=== PATIENT | female | born 1945 | race Two or more races ===

== ENCOUNTER 2023-09-13 09:14 | Inpatient (IN) | payer OTHER ==
[~2023-09-13] VITALS: Ht 152.4 cm; Wt 77.1 kg
[2023-09-13] MEDS ORDERED: 0.9 % SODIUM CHLORIDE 1,000 ML IV STA (10:13)
[2023-09-13 11:07] LABS: HEMATOCRIT 32.8 % (36.0-45.00); HEMOGLOBIN 10.8 g/dL (12.0-15.00); MEAN CELL VOLUME 83.3 fL (80.00-100.00); MEAN CORPUSCULAR HEMOGLOBIN 27.5 pg (27.00-32.0); PLATELET COUNT 271 K/uL (150-450); RED BLOOD COUNT 3.94 M/uL (4.00-6.00); RED CELL DISTRIBUTION WIDTH 23.3 % (11.5-14.5)
[2023-09-13 11:29] LABS: ALBUMIN 3.7 gm/dL (3.4-5.0); ALKALINE PHOSPHATASE 89 U/L (50-136); ALT/SGPT 29 U/L (12-78); ANION GAP 8 (10.0-20.0); AST/SGOT 21 U/L (15-37); BILIRUBIN TOTAL 0.42 mg/dL (0.3-1.2); BILIRUBIN,CONJUGATED < 0.10 mg/dL (0.0-0.2); BILIRUBIN,UNCONJUGATED 0.32 mg/dL (0.0-0.6); BLOOD UREA NITROGEN 12 mg/dL (7-18); BUN CREA RATIO 32 (7.0-25.0); CALCIUM 9.3 mg/dL (8.5-10.1); CARBON DIOXIDE 28 mEq/L (21-32); CHLORIDE 108 mmol/L (98-107); CREATININE SERUM 0.38 mg/dL (0.55-1.02); GFR 165.09; GLUCOSE FASTING 95 mg/dL (65-100); OSMOLALITY SERUM 281 MOSM/KG (275-295); POTASSIUM 3.37 mEq/L (3.5-5.1); SODIUM 141 mmol/L (136-145); TOTAL PROTEIN 7.2 gm/dL (6.4-8.2)
[2023-09-13 11:35] LABS: INR 0.96; PARTIAL THROMBOPLASTIN TIME 26.5 SECONDS (22.0-34.0); PROTHROMBIN TIME 10.1 SECONDS (9.0-11.5)
[2023-09-13 12:00] LABS: PH,URINE 7.5 (5.0-8.0); URINE APPEARANCE Clear; URINE BILIRRUBIN Negative (NEGATIVE); URINE BLOOD Negative; URINE COLOR Yellow; URINE GLUCOSE Negative (NEGATIVE); URINE LEUKOCYTE Trace; URINE NITRATE Negative; URINE PROTEIN Negative (NEGATIVE); URINE UROBILINOGEN 0.2 E.U./dl
[2023-09-13 12:02] LABS: URINE BACTERIA 21.4 uL (0.0-1933); URINE WBC 4.1 uL (0.0-23.2)
[2023-09-13 12:04] LABS: URINE RBC 1.7 uL (0.0-20.8)
[2023-09-13] MEDS ORDERED: SOD FERRIC GLUC COMPLX/SUCROSE 62.5 MG in 0.9 % SODIUM CHLORIDE 50 ML IV SCH (14:07)
[2023-09-13] MEDS ORDERED: POTASSIUM CHLORIDE 20MEQ/100ML H2O PB IV ONE (14:15)
[2023-09-13] MEDS ORDERED: 0.9 % SODIUM CHLORIDE 1,000 ML IV SCH (19:45)
[2023-09-13] MEDS ORDERED: MEPERIDINE HCL/PF 25 MG/ML VIAL IM PRN (19:45)
[2023-09-13] MEDS ORDERED: ACETAMINOPHEN 500 MG GEL..CAP PO PRN (19:45)
[2023-09-13] MEDS ORDERED: ONDANSETRON HCL 4 MG in 0.9 % SODIUM CHLORIDE 50 ML IV PRN (19:45)
[2023-09-13] MEDS ORDERED: FAMOTIDINE/PF 20 MG/10 ML SYRINGE IV SCH (21:00)
[2023-09-14 06:09] LABS: HEMATOCRIT 33.3 % (36.0-45.00); HEMOGLOBIN 10.9 g/dL (12.0-15.00); MEAN CELL VOLUME 85.5 fL (80.00-100.00); MEAN CORPUSCULAR HEMOGLOBIN 27.9 pg (27.00-32.0); MEAN CORPUSCULAR HGB CONC 32.7 g/dl (32.0-36.0); PLATELET COUNT 271 K/uL (150-450); RED CELL DISTRIBUTION WIDTH 23.8 % (11.5-14.5)
[2023-09-14 06:45] LABS: COL EPI 98 SECONDS (82-175)
[2023-09-14 06:46] LABS: CALCIUM 8.8 mg/dL (8.5-10.1); CREATININE SERUM 0.39 mg/dL (0.55-1.02); GFR 160.21; PHOSPHOROUS 4.1 mg/dL (2.5-4.9); POTASSIUM 4.03 mEq/L (3.5-5.1)
[2023-09-14] MEDS ORDERED: POLYETHYLENE GLYCOL 3350 238 GM POWDER PO ONE (10:30)
[2023-09-15] MEDS ORDERED: VANCOMYCIN HCL 1,000 MG VIAL IV STA (08:56)
[2023-09-15] MEDS ORDERED: LIDOCAINE HCL 1%/Epi 20ML VIAL IJ ONE ×2 (12:25→13:45)
[2023-09-15] MEDS ORDERED: BUPIVACAINE HCL/PF 0.5% 30ML ML ONE (12:25)
[2023-09-15] MEDS ORDERED: CEFTRIAXONE SODIUM 2,000 MG VIAL ONE (13:36)
[2023-09-15] MEDS ORDERED: METRONIDAZOLE/SODIUM CHLORIDE 500 MG/100 ML PIGGYBACK IV ONE (13:36)
[2023-09-15] MEDS ORDERED: BUPIVACAINE HCL/PF 0.5% 30ML ML IJ ONE (13:45)
[2023-09-15] MEDS ORDERED: CEFTRIAXONE SODIUM 2,000 MG in 0.9 % SODIUM CHLORIDE 50 ML IV ONE (13:45)
[2023-09-15] MEDS ORDERED: METRONIDAZOLE/SODIUM CHLORIDE 200 ML IV ONE (13:45)
[2023-09-15] MEDS ORDERED: ONDANSETRON HCL 2 MG/ML VIAL IV PRN (15:45)
[2023-09-15] MEDS ORDERED: OxyCODONE HCL 5 MG TABLET (ROXICODONE) PO PRN (15:45)
[2023-09-15] MEDS ORDERED: DEXTROSE 50 % IN WATER 0.5 G/ML DISP.SYRIN IV PRN (15:45)
[2023-09-15] MEDS ORDERED: RINGERS SOLUTION,LACTATED 1,000 ML IV SCH (15:45)
[2023-09-15] MEDS ORDERED: MORPHINE SULFATE 4 MG/ML CARTRIDGE IV PRN (15:45)
[2023-09-15] MEDS ORDERED: SUGAMMADEX SODIUM 200 MG/2 ML VIAL IV ONE (15:53)
[2023-09-15] MEDS ORDERED: POLYETHYLENE GLYCOL 3350 17 GM BLIST.PACK PO SCH (17:00)
[2023-09-15] MEDS ORDERED: GABAPENTIN 300 MG CAPSULE PO SCH (17:00)
[2023-09-15] MEDS ORDERED: HYOSCYAMINE SULFATE 0.125 MG TAB.SUBL SL SCH (17:00)
[2023-09-15] MEDS ORDERED: PIPERACILLIN/TAZOBACTAM SODIUM 3.375 GM in DEXTROSE 5 % IN WATER 100 ML IV SCH (18:00)
[2023-09-15] MEDS ORDERED: PIPERACILLIN/TAZOBACTAM SODIUM 3.375 GM VIAL IV ONE (18:10)
[2023-09-15] MEDS ORDERED: ACETAMINOPHEN 500 MG GEL..CAP PO SCH (20:00)
[2023-09-15 20:31] LABS: HEMATOCRIT 32.9 % (36.0-45.00); HEMOGLOBIN 10.7 g/dL (12.0-15.00); MEAN CELL VOLUME 86.2 fL (80.00-100.00); MEAN CORPUSCULAR HEMOGLOBIN 28.1 pg (27.00-32.0); MEAN CORPUSCULAR HGB CONC 32.5 g/dl (32.0-36.0); PLATELET COUNT 273 K/uL (150-450); RED BLOOD COUNT 3.82 M/uL (4.00-6.00)
[2023-09-15 20:50] LABS: ALBUMIN 3.4 gm/dL (3.4-5.0); CREATININE SERUM 0.31 mg/dL (0.55-1.02); GFR 208.26; MAGNESIUM 1.6 mg/dL (1.8-2.4); PHOSPHOROUS 3.6 mg/dL (2.5-4.9); POTASSIUM 3.19 mEq/L (3.5-5.1)
[2023-09-15] MEDS ORDERED: CELECOXIB 200 MG CAPSULE PO SCH (21:00)
[2023-09-15] MEDS ORDERED: FAMOTIDINE/PF 20 MG/2 ML VIAL IV SCH (21:00)
[2023-09-15] MEDS ORDERED: FAMOTIDINE/PF 20 MG/2 ML VIAL IV PUSH SCH (21:00)
[2023-09-16 08:02] LABS: CREATININE SERUM 0.4 mg/dL (0.55-1.02); GFR 155.19; MAGNESIUM 1.8 mg/dL (1.8-2.4); PHOSPHOROUS 3.5 mg/dL (2.5-4.9); POTASSIUM 3.24 mEq/L (3.5-5.1)
[2023-09-16 08:22] LABS: HEMATOCRIT 30.6 % (36.0-45.00); HEMOGLOBIN 10.2 g/dL (12.0-15.00); MEAN CELL VOLUME 86.3 fL (80.00-100.00); MEAN CORPUSCULAR HEMOGLOBIN 28.6 pg (27.00-32.0); MEAN CORPUSCULAR HGB CONC 33.2 g/dl (32.0-36.0); PLATELET COUNT 231 K/uL (150-450); RED BLOOD COUNT 3.55 M/uL (4.00-6.00); RED CELL DISTRIBUTION WIDTH 24.4 % (11.5-14.5)
[2023-09-16] MEDS ORDERED: POTASSIUM CHLORIDE IN WATER 100 ML IV ONE (11:00)
[2023-09-16] MEDS ORDERED: TAMSULOSIN HCL 0.4 MG CAP PO ONE (12:15)
[2023-09-16] MEDS ORDERED: VANCOMYCIN HCL 1,000 MG VIAL IV SCH (13:01)
[2023-09-16 15:59] LABS: CREATININE SERUM 0.66 mg/dL (0.55-1.02); GFR 87.07
[2023-09-16 16:54] LABS: POTASSIUM 2.71 mEq/L (3.5-5.1)
[2023-09-16] MEDS ORDERED: ENOXAPARIN SODIUM 40 MG/0.4 ML SYRINGE SUBCUTANEO SCH (17:00)
[2023-09-17 07:38] LABS: CALCIUM 8.1 mg/dL (8.5-10.1); CREATININE SERUM 0.49 mg/dL (0.55-1.02); GFR 122.79; POTASSIUM 3.54 mEq/L (3.5-5.1)
[2023-09-17 08:08] LABS: MAGNESIUM 1.4 mg/dL (1.8-2.4)
[2023-09-17 08:41] LABS: HEMATOCRIT 31.3 % (36.0-45.00); HEMOGLOBIN 10.4 g/dL (12.0-15.00); MEAN CELL VOLUME 86.3 fL (80.00-100.00); MEAN CORPUSCULAR HEMOGLOBIN 28.7 pg (27.00-32.0); MEAN CORPUSCULAR HGB CONC 33.3 g/dl (32.0-36.0); PLATELET COUNT 208 K/uL (150-450); RED BLOOD COUNT 3.63 M/uL (4.00-6.00); RED CELL DISTRIBUTION WIDTH 24.2 % (11.5-14.5)
[2023-09-17] MEDS ORDERED: ENOXAPARIN SODIUM 40 MG/0.4 ML SYRINGE SUBCUTANEO SCH (09:00)
[2023-09-17] MEDS ORDERED: MAGNESIUM SULFATE IN WATER 4 GM/100 ML PIGGYBACK IV ONE (12:30)
[2023-09-17] MEDS ORDERED: POTASSIUM PHOS,M-BASIC-D-BASIC 15 MM in 0.9 % SODIUM CHLORIDE 250 ML IV ONE (14:00)
[2023-09-18 06:21] LABS: HEMATOCRIT 33.2 % (36.0-45.00); HEMOGLOBIN 11.1 g/dL (12.0-15.00); MEAN CELL VOLUME 84.8 fL (80.00-100.00); MEAN CORPUSCULAR HEMOGLOBIN 28.3 pg (27.00-32.0); MEAN CORPUSCULAR HGB CONC 33.4 g/dl (32.0-36.0); PLATELET COUNT 224 K/uL (150-450); RED BLOOD COUNT 3.92 M/uL (4.00-6.00); RED CELL DISTRIBUTION WIDTH 24.4 % (11.5-14.5)
[2023-09-18 06:39] LABS: CALCIUM 8.2 mg/dL (8.5-10.1); CREATININE SERUM 0.59 mg/dL (0.55-1.02); GFR 99.1; MAGNESIUM 2.4 mg/dL (1.8-2.4); PHOSPHOROUS 2.1 mg/dL (2.5-4.9); POTASSIUM 4.02 mEq/L (3.5-5.1)
[2023-09-18] MEDS ORDERED: 0.9 % SODIUM CHLORIDE 500 ML IV SCH (07:45)
[2023-09-18] MEDS ORDERED: 0.9 % SODIUM CHLORIDE 1,000 ML IV SCH (10:00)
[2023-09-18 16:19] LABS: HEMOGLOBIN 10.7 g/dL (12.0-15.00); MEAN CELL VOLUME 85.5 fL (80.00-100.00); MEAN CORPUSCULAR HEMOGLOBIN 28.6 pg (27.00-32.0); MEAN CORPUSCULAR HGB CONC 33.4 g/dl (32.0-36.0); PLATELET COUNT 262 K/uL (150-450); RED BLOOD COUNT 3.74 M/uL (4.00-6.00); RED CELL DISTRIBUTION WIDTH 23.9 % (11.5-14.5)
[2023-09-19] MEDS ORDERED: FUROsemide 20 MG/2 ML VIAL IV STA (05:17)
[2023-09-19] MEDS ORDERED: IPRATROPIUM/ALBUTEROL SULFATE 3 ML AMPUL.NEB IH STA (05:17)
[2023-09-19] MEDS ORDERED: IPRATROPIUM BROMIDE 0.5 MG/2.5 ML AMPUL.NEB IH ONE (05:44)
[2023-09-19 05:59] LABS: ALBUMIN 2.2 gm/dL (3.4-5.0); CALCIUM 7.9 mg/dL (8.5-10.1); CREATININE SERUM 0.43 mg/dL (0.55-1.02); GFR 142.76; POTASSIUM 3.92 mEq/L (3.5-5.1)
[2023-09-19 06:34] LABS: PHOSPHOROUS 1.9 mg/dL (2.5-4.9)
[2023-09-19] MEDS ORDERED: POTASSIUM PHOS,M-BASIC-D-BASIC 3 MM/ML VIAL IV ONE (13:00)
[2023-09-19] MEDS ORDERED: FUROsemide 20 MG/2 ML VIAL IV SCH (13:00)
[2023-09-19 13:19] LABS: ABG PH 7.372 (7.35-7.45); ABG pCO2 33.2 mmHg (35-45); BASE EXCESS -5.3 mmol/l; BICARBONATE 18.9 mmol/l (23-25); SaO2 96.8 %; Tco2 19.9 mmol/l; allen test SATISFACTORY; o2 21 %; puncture site RADIAL RIGHT
[2023-09-19] MEDS ORDERED: ENOXAPARIN SODIUM 80 MG/0.8 ML SYRINGE SUBCUTANEO STA (13:41)
[2023-09-19] MEDS ORDERED: ENOXAPARIN SODIUM 80 MG/0.8 ML SYRINGE SUBCUTANEO SCH (21:00)
[2023-09-20 06:58] LABS: BILIRUBIN TOTAL 1.14 mg/dL (0.3-1.2); CALCIUM 7.8 mg/dL (8.5-10.1); GLOBULINA 2.8 G/DL (2.4-3.5); POTASSIUM 3.78 mEq/L (3.5-5.1); TOTAL PROTEIN 4.8 gm/dL (6.4-8.2); URIC ACID 3.9 mg/dL (2.5-7.5)
[2023-09-20 07:02] LABS: HEMOGLOBIN 9.8 g/dL (12.0-15.00); MEAN CELL VOLUME 84.4 fL (80.00-100.00); MEAN CORPUSCULAR HEMOGLOBIN 28.4 pg (27.00-32.0); MEAN CORPUSCULAR HGB CONC 33.7 g/dl (32.0-36.0); PLATELET COUNT 267 K/uL (150-450); RED BLOOD COUNT 3.44 M/uL (4.00-6.00); RED CELL DISTRIBUTION WIDTH 24.3 % (11.5-14.5)
[2023-09-20 07:29] LABS: CREATININE SERUM 0.29 mg/dL (0.55-1.02); GFR 224.92
[2023-09-20] MEDS ORDERED: ENOXAPARIN SODIUM 40 MG/0.4 ML SYRINGE SUBCUTANEO SCH ×2 (09:00→17:00)
[2023-09-20] MEDS ORDERED: SOD FERRIC GLUC COMPLX/SUCROSE 62.5 MG in 0.9 % SODIUM CHLORIDE 50 ML IV SCH (10:22)
[2023-09-20] MEDS ORDERED: Cyanocobalamin/Mecobalamin 1 TAB.SL SL SCH (10:22)
[2023-09-20 12:50] LABS: URINE APPEARANCE Cloudy; URINE BILIRRUBIN Negative (NEGATIVE); URINE BLOOD Trace; URINE COLOR Yellow; URINE GLUCOSE Negative (NEGATIVE); URINE LEUKOCYTE Negative; URINE NITRATE Negative; URINE PROTEIN Trace (NEGATIVE); URINE UROBILINOGEN 0.2 E.U./dl
[2023-09-20 12:54] LABS: URINE EPITHELIAL CELLS 11.2 uL (0.0-38.8); URINE RBC 4.5 uL (0.0-20.8); URINE WBC 5.8 uL (0.0-23.2)
[2023-09-20] MEDS ORDERED: FUROsemide 20 MG/2 ML VIAL IV SCH (13:00)
[2023-09-21 06:58] LABS: HEMOGLOBIN 9.2 g/dL (12.0-15.00); MEAN CELL VOLUME 82.5 fL (80.00-100.00); PLATELET COUNT 320 K/uL (150-450); RED BLOOD COUNT 3.27 M/uL (4.00-6.00); RED CELL DISTRIBUTION WIDTH 24.3 % (11.5-14.5)
[2023-09-21 07:18] LABS: CALCIUM 7.7 mg/dL (8.5-10.1); MAGNESIUM 1.8 mg/dL (1.8-2.4); TSH 0.69 uIU/mL (0.358-3.74)
[2023-09-21 07:26] LABS: GFR 326.43; POTASSIUM 2.96 mEq/L (3.5-5.1)
[2023-09-21 07:27] LABS: ALBUMIN 2.1 gm/dL (3.4-5.0); BILIRUBIN TOTAL 1.09 mg/dL (0.3-1.2); GLOBULINA 2.8 G/DL (2.4-3.5); PHOSPHOROUS 1.8 mg/dL (2.5-4.9); TOTAL PROTEIN 4.9 gm/dL (6.4-8.2)
[2023-09-21 07:28] LABS: CREATININE SERUM 0.21 mg/dL (0.55-1.02)
[2023-09-21] MEDS ORDERED: POTASSIUM PHOS,M-BASIC-D-BASIC 3 MM/ML VIAL IV ONE (07:30)
[2023-09-21] MEDS ORDERED: POTASSIUM CHLORIDE 20MEQ/100ML H2O PB IV ONE (07:30)
[2023-09-21] MEDS ORDERED: METOCLOPRAMIDE HCL 5 MG/ML VIAL IV SCH (09:00)
[2023-09-21] MEDS ORDERED: MAGNESIUM SULFATE IN WATER 50 ML IV ONE (09:45)
[2023-09-22 06:51] LABS: ALBUMIN 2.2 gm/dL (3.4-5.0); BILIRUBIN TOTAL 0.91 mg/dL (0.3-1.2); CALCIUM 7.6 mg/dL (8.5-10.1); GLOBULINA 2.8 G/DL (2.4-3.5); MAGNESIUM 2.4 mg/dL (1.8-2.4)
[2023-09-22 06:53] LABS: GFR 266.94
[2023-09-22 06:54] LABS: POTASSIUM 2.96 mEq/L (3.5-5.1)
[2023-09-22 06:55] LABS: PHOSPHOROUS 1.7 mg/dL (2.5-4.9)
[2023-09-22 06:56] LABS: CREATININE SERUM 0.25 mg/dL (0.55-1.02)
[2023-09-22] MEDS ORDERED: POTASSIUM CHLORIDE 20MEQ/100ML H2O PB IV ONE (07:45)
[2023-09-22] MEDS ORDERED: POTASSIUM PHOS,M-BASIC-D-BASIC 3 MM/ML VIAL IV ONE (08:30)
[2023-09-22] MEDS ORDERED: LEVALBUTEROL HCL 0.63 MG/3 ML SOLUTION IH SCH (09:26)
[2023-09-22] MEDS ORDERED: SIMETHICONE 125 MG CAPSULE PO SCH (13:30)
[2023-09-22 13:47] LABS: HEMATOCRIT 31.2 % (36.0-45.00); HEMOGLOBIN 10.3 g/dL (12.0-15.00); MEAN CELL VOLUME 83.6 fL (80.00-100.00); MEAN CORPUSCULAR HEMOGLOBIN 27.6 pg (27.00-32.0); PLATELET COUNT 386 K/uL (150-450); RED BLOOD COUNT 3.72 M/uL (4.00-6.00); RED CELL DISTRIBUTION WIDTH 24.4 % (11.5-14.5)
[2023-09-22] MEDS ORDERED: PIPERACILLIN/TAZOBACTAM SODIUM 3.375 GM in 0.9 % SODIUM CHLORIDE 100 ML IV SCH (18:00)
[2023-09-23 08:04] LABS: HEMATOCRIT 29.5 % (36.0-45.00); MEAN CELL VOLUME 84.2 fL (80.00-100.00); MEAN CORPUSCULAR HGB CONC 33.1 g/dl (32.0-36.0); PLATELET COUNT 363 K/uL (150-450); RED BLOOD COUNT 3.51 M/uL (4.00-6.00); RED CELL DISTRIBUTION WIDTH 24.7 % (11.5-14.5)
[2023-09-23 08:29] LABS: CALCIUM 7.7 mg/dL (8.5-10.1); GFR 255.13; MAGNESIUM 2.1 mg/dL (1.8-2.4); PHOSPHOROUS 2.6 mg/dL (2.5-4.9); POTASSIUM 3.25 mEq/L (3.5-5.1)
[2023-09-23 08:38] LABS: CREATININE SERUM 0.26 mg/dL (0.55-1.02)
[2023-09-23 08:49] LABS: HEMOGLOBIN 9.8 g/dL (12.0-15.00); MEAN CORPUSCULAR HEMOGLOBIN 27.9 pg (27.00-32.0)
[2023-09-23] MEDS ORDERED: AMINO ACIDS 1 EACH TABLET PO SCH (11:47)
[2023-09-23] MEDS ORDERED: DIATRIZOATE MEGLUMINE, SODIUM 30 ML BOTTLE PO ONE (12:00)
[2023-09-23] MEDS ORDERED: POTASSIUM CHLORIDE IN WATER 100 ML IV ONE (12:00)
[2023-09-23] MEDS ORDERED: FLUCONAZOLE IN NACL,ISO-OSM 400 MG/200 ML PIGGYBAG IV ONE (13:30)
[2023-09-23] MEDS ORDERED: SPIRONOLACTONE 25 MG TABLET PO SCH (15:14)
[2023-09-23 15:56] LABS: URINE APPEARANCE Cloudy; URINE BILIRRUBIN Negative (NEGATIVE); URINE BLOOD Negative; URINE COLOR Dark Yellow; URINE GLUCOSE Negative (NEGATIVE); URINE LEUKOCYTE Trace; URINE NITRATE Negative; URINE PROTEIN 30 (NEGATIVE); URINE UROBILINOGEN 0.2 E.U./dl
[2023-09-23 16:01] LABS: URINE BACTERIA 36.5 uL (0.0-1933); URINE EPITHELIAL CELLS 93.8 uL (0.0-38.8); URINE RBC 28.7 uL (0.0-20.8)
[2023-09-23] MEDS ORDERED: VANCOMYCIN HCL 1,000 MG VIAL IV SCH (21:00)
[2023-09-24 11:38] LABS: ALBUMIN 1.9 gm/dL (3.4-5.0); BILIRUBIN TOTAL 0.66 mg/dL (0.3-1.2); CALCIUM 7.6 mg/dL (8.5-10.1); GLOBULINA 2.9 G/DL (2.4-3.5); TOTAL PROTEIN 4.8 gm/dL (6.4-8.2)
[2023-09-24 11:45] LABS: GFR 293.91
[2023-09-24 11:47] LABS: HEMATOCRIT 27.4 % (36.0-45.00); MEAN CELL VOLUME 83.2 fL (80.00-100.00); MEAN CORPUSCULAR HEMOGLOBIN 27.4 pg (27.00-32.0); PLATELET COUNT 417 K/uL (150-450); RED BLOOD COUNT 3.29 M/uL (4.00-6.00); RED CELL DISTRIBUTION WIDTH 25.4 % (11.5-14.5)
[2023-09-24] MEDS ORDERED: FLUCONAZOLE IN NACL,ISO-OSM 100 ML IV SCH (12:00)
[2023-09-24] MEDS ORDERED: POTASSIUM CHLORIDE IN WATER 100 ML IV ONE (12:00)
[2023-09-24] MEDS ORDERED: FUROsemide 20 MG/2 ML VIAL IV SCH (12:07)
[2023-09-24 12:08] LABS: CREATININE SERUM 0.23 mg/dL (0.55-1.02)
[2023-09-24] MEDS ORDERED: SPIRONOLACTONE 50 MG TABLET PO SCH (12:16)
[2023-09-24 12:44] LABS: PROCALCITONIN 0.502 ng/ml (0.020-0.080)
[2023-09-24 12:50] LABS: CORTISOL 28.75 ug/dl
[2023-09-24] MEDS ORDERED: POTASSIUM BICARBONATE/CIT AC 25 MEQ TABLET.EFF PO SCH (13:00)
[2023-09-24] MEDS ORDERED: MEPERIDINE HCL/PF 25 MG/ML VIAL IV PRN (15:00)
[2023-09-24] MEDS ORDERED: ONDANSETRON HCL 4 MG in 0.9 % SODIUM CHLORIDE 50 ML IV PRN (15:00)
[2023-09-25 12:32] LABS: CALCIUM 7.6 mg/dL (8.5-10.1); CREATININE SERUM 0.35 mg/dL (0.55-1.02); GFR 181.04; PHOSPHOROUS 2.8 mg/dL (2.5-4.9)
[2023-09-25] MEDS ORDERED: LIDOCAINE HCL 100 MG/10ML VIAL ONE (13:49)
[2023-09-25 14:02] LABS: HEMATOCRIT 28.4 % (36.0-45.00); HEMOGLOBIN 9.3 g/dL (12.0-15.00); MEAN CELL VOLUME 83.5 fL (80.00-100.00); MEAN CORPUSCULAR HEMOGLOBIN 27.5 pg (27.00-32.0); MEAN CORPUSCULAR HGB CONC 32.9 g/dl (32.0-36.0); PLATELET COUNT 445 K/uL (150-450); RED BLOOD COUNT 3.39 M/uL (4.00-6.00)
[2023-09-25] MEDS ORDERED: 0.9 % SODIUM CHLORIDE 1,000 ML IV SCH (14:30)
[2023-09-25] MEDS ORDERED: fentaNYL CITRATE 50 MCG/ML AMPUL IV PUSH ONE (16:15)
[2023-09-25] MEDS ORDERED: MIDAZOLAM HCL 2 MG/2 ML VIAL IV PUSH ONE (16:15)
[2023-09-25] MEDS ORDERED: AA 4.25%/CALCIUM/LYTES/DEX 10% 1,000 ML CENTRAL SCH (17:00)
[2023-09-25] MEDS ORDERED: VANCOMYCIN HCL 5 MG/ML REDILUIDO IV SCH (21:00)
[2023-09-25] MEDS ORDERED: VANCOMYCIN HCL 500 MG VIAL ONE (21:47)
[2023-09-26 05:25] LABS: HEMATOCRIT 26.2 % (36.0-45.00); HEMOGLOBIN 8.6 g/dL (12.0-15.00); MEAN CORPUSCULAR HEMOGLOBIN 27.9 pg (27.00-32.0); PLATELET COUNT 402 K/uL (150-450); RED BLOOD COUNT 3.08 M/uL (4.00-6.00); RED CELL DISTRIBUTION WIDTH 26.3 % (11.5-14.5)
[2023-09-26 05:41] LABS: ALBUMIN 1.5 gm/dL (3.4-5.0); BILIRUBIN TOTAL 0.38 mg/dL (0.3-1.2); CALCIUM 7.2 mg/dL (8.5-10.1); GFR 234.22; GLOBULINA 2.7 G/DL (2.4-3.5); POTASSIUM 4.56 mEq/L (3.5-5.1); TOTAL PROTEIN 4.2 gm/dL (6.4-8.2)
[2023-09-26 05:46] LABS: CALCIUM 7.1 mg/dL (8.5-10.1); CREATININE SERUM 0.3 mg/dL (0.55-1.02); GFR 216.29; PHOSPHOROUS 2.4 mg/dL (2.5-4.9); POTASSIUM 4.57 mEq/L (3.5-5.1)
[2023-09-26 05:49] LABS: CREATININE SERUM 0.28 mg/dL (0.55-1.02)
[2023-09-26] MEDS ORDERED: FUROsemide 20 MG/2 ML VIAL IV SCH (07:30)
[2023-09-26] MEDS ORDERED: SOD FERRIC GLUC COMPLX/SUCROSE 62.5 MG/5 ML AMPUL IV ONE ×2 (07:43→08:32)
[2023-09-26] MEDS ORDERED: PIPERACILLIN/TAZOBACTAM SODIUM 3.375 GM VIAL IV ONE ×3 (07:43→18:45)
[2023-09-26] MEDS ORDERED: PIPERACILLIN/TAZOBACTAM SODIUM 4.5 GM VIAL IV SCH (12:38)
[2023-09-26] MEDS ORDERED: CHLORHEXIDINE GLUCONATE 120 ML BOTTLE TOP ONE (17:58)
[2023-09-26] MEDS ORDERED: MEPERIDINE HCL/PF 25 MG/ML VIAL IV PRN (20:00)
[2023-09-26] MEDS ORDERED: MORPHINE SULFATE 4 MG in 0.9 % SODIUM CHLORIDE 9 ML IV PRN (20:00)
[2023-09-26] MEDS ORDERED: ONDANSETRON HCL 2 MG/ML VIAL IV ONE (20:00)
[2023-09-26] MEDS ORDERED: MORPHINE SULFATE 4 MG/ML CARTRIDGE IV PRN (20:30)
[2023-09-26] MEDS ORDERED: DEXTROSE 50 % IN WATER 0.5 G/ML DISP.SYRIN IV PRN (20:30)
[2023-09-26] MEDS ORDERED: RINGERS SOLUTION,LACTATED 1,000 ML IV SCH (20:30)
[2023-09-26] MEDS ORDERED: INSULIN LISPRO PROTAMIN/LISPRO 1,000 UNITS/10 ML UNITS SUBCUTANEO PRN (20:30)
[2023-09-26] MEDS ORDERED: HEPARIN SODIUM,PORCINE 500 UNITS/5 ML VIAL IV ONE (20:34)
[2023-09-26] MEDS ORDERED: NOREPINEPHRINE BITARTRATE 1 MG/ML AMPUL IV ONE (22:13)
[2023-09-26] MEDS ORDERED: HEPARIN SODIUM,PORCINE 1,000 UNITS/ML VIAL IV ONE (22:15)
[2023-09-27] MEDS ORDERED: PIPERACILLIN/TAZOBACTAM SODIUM 3.375 GM in DEXTROSE 5 % IN WATER 100 ML IV SCH
[2023-09-27 00:54] LABS: ABG PH 7.446 (7.35-7.45)
[2023-09-27 00:55] LABS: ABG PO2 518.4 mmHg (80-100); BASE EXCESS -3.1 mmol/l; BICARBONATE 19.5 mmol/l (23-25); Tco2 20.4 mmol/l; allen test SATISFACTORY; o2 100 %; puncture site RADIAL RIGHT
[2023-09-27 01:05] LABS: HEMATOCRIT 33.6 % (36.0-45.00); MEAN CELL VOLUME 86.1 fL (80.00-100.00); MEAN CORPUSCULAR HGB CONC 32.7 g/dl (32.0-36.0); PLATELET COUNT 420 K/uL (150-450); RED BLOOD COUNT 3.91 M/uL (4.00-6.00); RED CELL DISTRIBUTION WIDTH 23.9 % (11.5-14.5)
[2023-09-27 01:12] LABS: MEAN CORPUSCULAR HEMOGLOBIN 28.1 pg (27.00-32.0)
[2023-09-27 01:17] LABS: ALBUMIN 1.3 gm/dL (3.4-5.0); CALCIUM 7.2 mg/dL (8.5-10.1); CREATININE SERUM 0.53 mg/dL (0.55-1.02); GFR 112.16; MAGNESIUM 2.2 mg/dL (1.8-2.4); PHOSPHOROUS 3.8 mg/dL (2.5-4.9); POTASSIUM 4.68 mEq/L (3.5-5.1)
[2023-09-27] MEDS ORDERED: PIPERACILLIN/TAZOBACTAM SODIUM 3.375 GM VIAL IV ONE (02:44)
[2023-09-27] MEDS ORDERED: 0.9 % SODIUM CHLORIDE 1,000 ML IV SCH ×3 (08:00→21:00)
[2023-09-27] MEDS ORDERED: MEROPENEM 500 MG/VIAL VIAL IV SCH (08:00)
[2023-09-27] MEDS ORDERED: SODIUM CHLORIDE 0.9% IV SCH (08:15)
[2023-09-27] MEDS ORDERED: FENTANYL CITRATE IV SCH (08:15)
[2023-09-27 08:49] LABS: ABG PH 7.229 (7.35-7.45); ABG PO2 398.4 mmHg (80-100); BASE EXCESS -16.1 mmol/l; BICARBONATE 9.4 mmol/l (23-25); SaO2 99.9 %; Tco2 10.1 mmol/l
[2023-09-27 08:50] LABS: allen test SATISFACTORY; o2 100 %; puncture site RADIAL LEFT
[2023-09-27] MEDS ORDERED: PANTOPRAZOLE SODIUM 40 MG/VIAL VIAL IV SCH (09:00)
[2023-09-27] MEDS ORDERED: SODIUM BICARBONATE 1 MEQ/ML DISP.SYRIN 50ML IV SCH (09:30)
[2023-09-27 11:19] LABS: HEMATOCRIT 26.2 % (36.0-45.00); MEAN CELL VOLUME 89.1 fL (80.00-100.00); MEAN CORPUSCULAR HGB CONC 32.1 g/dl (32.0-36.0); PLATELET COUNT 200 K/uL (150-450); RED BLOOD COUNT 2.95 M/uL (4.00-6.00); RED CELL DISTRIBUTION WIDTH 23.8 % (11.5-14.5)
[2023-09-27 11:50] LABS: CREATININE SERUM 1.05 mg/dL (0.55-1.02); GFR 50.95; MAGNESIUM 1.9 mg/dL (1.8-2.4); PHOSPHOROUS 5.9 mg/dL (2.5-4.9); POTASSIUM 4.97 mEq/L (3.5-5.1)
[2023-09-27 11:54] LABS: CALCIUM 6.3 mg/dL (8.5-10.1)
[2023-09-27 11:56] LABS: MEAN CORPUSCULAR HEMOGLOBIN 28.4 pg (27.00-32.0)
[2023-09-27 11:59] LABS: HEMOGLOBIN 8.4 g/dL (12.0-15.00)
[2023-09-27] MEDS ORDERED: METRONIDAZOLE/SODIUM CHLORIDE 100 ML IV SCH (13:04)
[2023-09-27] MEDS ORDERED: ENOXAPARIN SODIUM 40 MG/0.4 ML SYRINGE SUBCUTANEO SCH (17:00)
[2023-09-27 17:20] LABS: URINE APPEARANCE Turbid; URINE BILIRRUBIN Negative (NEGATIVE); URINE BLOOD Large; URINE COLOR Dark Yellow; URINE LEUKOCYTE Trace; URINE NITRATE Negative; URINE UROBILINOGEN 0.2 E.U./dl
[2023-09-27 17:23] LABS: URINE BACTERIA 229.3 uL (0.0-1933); URINE RBC 928.9 uL (0.0-20.8); URINE WBC 17.7 uL (0.0-23.2)
[2023-09-27 17:37] LABS: URINE GLUCOSE 100 MG/DL (NEGATIVE); URINE PROTEIN 100 (NEGATIVE)
[2023-09-27] MEDS ORDERED: INSULIN LISPRO 1,000 UNIT/10 ML UNITS SUBCUTANEO PRN (17:45)
[2023-09-27] MEDS ORDERED: NOREPINEPHRINE BITARTRATE 8 MG in DEXTROSE 5 % IN WATER 250 ML IV SCH (18:15)
[2023-09-28] MEDS ORDERED: VANCOMYCIN HCL 5 MG/ML REDILUIDO IV SCH (09:00)
[2023-09-28] MEDS ORDERED: POLYVINYL ALCOHOL 15 ML DROPS OP SCH (09:00)
[2023-09-28] MEDS ORDERED: ENOXAPARIN SODIUM 40 MG/0.4 ML SYRINGE SUBCUTANEO SCH (09:00)
[2023-09-28] MEDS ORDERED: CHLORHEXIDINE GLUCONATE 15ML BRUSH KIT MM SCH (09:00)
[2023-09-28 09:26] LABS: ABG PH 7.374 (7.35-7.45); ABG PO2 128.4 mmHg (80-100); ABG pCO2 34.1 mmHg (35-45); BASE EXCESS -4.8 mmol/l; BICARBONATE 19.5 mmol/l (23-25); SaO2 98.7 %; Tco2 20.5 mmol/l
[2023-09-28 09:27] LABS: allen test SATISFACTORY; o2 50 %; puncture site RADIAL LEFT
[2023-09-28 09:33] LABS: HEMATOCRIT 30.9 % (36.0-45.00); HEMOGLOBIN 10.5 g/dL (12.0-15.00); MEAN CELL VOLUME 86.3 fL (80.00-100.00); MEAN CORPUSCULAR HEMOGLOBIN 29.3 pg (27.00-32.0); PLATELET COUNT 227 K/uL (150-450); RED BLOOD COUNT 3.57 M/uL (4.00-6.00); RED CELL DISTRIBUTION WIDTH 20.5 % (11.5-14.5)
[2023-09-28 10:00] LABS: MAGNESIUM 1.7 mg/dL (1.8-2.4); PHOSPHOROUS 4.3 mg/dL (2.5-4.9)
[2023-09-28 10:07] LABS: ALBUMIN 1.1 gm/dL (3.4-5.0); BILIRUBIN TOTAL 0.39 mg/dL (0.3-1.2); CREATININE SERUM 1.51 mg/dL (0.55-1.02); GFR 33.5; GLOBULINA 2.5 G/DL (2.4-3.5); POTASSIUM 4.19 mEq/L (3.5-5.1); TOTAL PROTEIN 3.6 gm/dL (6.4-8.2)
[2023-09-28] MEDS ORDERED: 0.9 % SODIUM CHLORIDE 1,000 ML IV SCH (10:15)
[2023-09-28] MEDS ORDERED: MAGNESIUM SULFATE/D5W 100 ML IV ONE (10:45)
[2023-09-28] MEDS ORDERED: ANIDULAFUNGIN 100 MG VIAL IV ONE (13:00)
[2023-09-28] MEDS ORDERED: MEROPENEM 500 MG/VIAL VIAL IV SCH (17:00)
[2023-09-29 06:58] LABS: HEMATOCRIT 30.7 % (36.0-45.00); HEMOGLOBIN 10.5 g/dL (12.0-15.00); MEAN CELL VOLUME 86.5 fL (80.00-100.00); MEAN CORPUSCULAR HEMOGLOBIN 29.5 pg (27.00-32.0); MEAN CORPUSCULAR HGB CONC 34.1 g/dl (32.0-36.0); PLATELET COUNT 214 K/uL (150-450); RED BLOOD COUNT 3.55 M/uL (4.00-6.00); RED CELL DISTRIBUTION WIDTH 21.1 % (11.5-14.5)
[2023-09-29 07:15] LABS: ALBUMIN 1.2 gm/dL (3.4-5.0); BILIRUBIN TOTAL 0.38 mg/dL (0.3-1.2); BILIRUBIN,CONJUGATED 0.15 mg/dL (0.0-0.2); BILIRUBIN,UNCONJUGATED 0.23 mg/dL (0.0-0.6); CREATININE SERUM 1.61 mg/dL (0.55-1.02); GFR 31.11; MAGNESIUM 2.3 mg/dL (1.8-2.4); POTASSIUM 4.57 mEq/L (3.5-5.1); TOTAL PROTEIN 3.7 gm/dL (6.4-8.2)
[2023-09-29 07:46] LABS: CALCIUM 6.3 mg/dL (8.5-10.1)
[2023-09-29 09:23] LABS: ABG PH 7.403 (7.35-7.45); ABG PO2 112.4 mmHg (80-100); ABG pCO2 33.1 mmHg (35-45); BASE EXCESS -3.6 mmol/l; BICARBONATE 20.1 mmol/l (23-25); SaO2 98.3 %; Tco2 21.2 mmol/l
[2023-09-29 09:24] LABS: allen test SATISFACTORY; o2 40 %; puncture site RADIAL RIGHT
[2023-09-29] MEDS ORDERED: RACEPINEPHRINE HCL 0.5 ML AMPUL IH ONE (09:30)
[2023-09-29] MEDS ORDERED: ALBUTEROL SULFATE 3 ML/2.5 MG AMPUL.NEB IH ONE (09:30)
[2023-09-29] MEDS ORDERED: CALCIUM GLUCONATE 100 MG/ML VIAL IV ONE (09:45)
[2023-09-29] MEDS ORDERED: ANIDULAFUNGIN 100 MG VIAL IV SCH (12:00)
[2023-09-30 07:57] LABS: ALBUMIN 1.1 gm/dL (3.4-5.0); BILIRUBIN TOTAL 0.42 mg/dL (0.3-1.2); CREATININE SERUM 1.48 mg/dL (0.55-1.02); GFR 34.29; GLOBULINA 2.7 G/DL (2.4-3.5); MAGNESIUM 2.1 mg/dL (1.8-2.4); PHOSPHOROUS 3.8 mg/dL (2.5-4.9); POTASSIUM 4.54 mEq/L (3.5-5.1); TOTAL PROTEIN 3.8 gm/dL (6.4-8.2)
[2023-09-30 08:46] LABS: HEMATOCRIT 31.4 % (36.0-45.00); HEMOGLOBIN 10.8 g/dL (12.0-15.00); MEAN CELL VOLUME 85.3 fL (80.00-100.00); MEAN CORPUSCULAR HEMOGLOBIN 29.3 pg (27.00-32.0); MEAN CORPUSCULAR HGB CONC 34.3 g/dl (32.0-36.0); PLATELET COUNT 202 K/uL (150-450); RED BLOOD COUNT 3.68 M/uL (4.00-6.00); RED CELL DISTRIBUTION WIDTH 21.1 % (11.5-14.5)
[2023-09-30] MEDS ORDERED: VANCOMYCIN HCL 5 MG/ML REDILUIDO IV SCH (09:00)
[2023-09-30] MEDS ORDERED: ENOXAPARIN SODIUM 30 MG/0.3 ML SYRINGE SUBCUTANEO SCH (09:00)
[2023-09-30] MEDS ORDERED: MORPHINE SULFATE 4 MG/ML CARTRIDGE IV PRN (11:00)
[2023-09-30] MEDS ORDERED: hydrALAZINE HCL 20 MG VIAL IV PRN ×2 (11:45→13:15)
[2023-10-02 07:02] LABS: HEMATOCRIT 30.9 % (36.0-45.00); HEMOGLOBIN 10.6 g/dL (12.0-15.00); MEAN CELL VOLUME 87.1 fL (80.00-100.00); MEAN CORPUSCULAR HEMOGLOBIN 29.8 pg (27.00-32.0); MEAN CORPUSCULAR HGB CONC 34.2 g/dl (32.0-36.0); PLATELET COUNT 217 K/uL (150-450); RED BLOOD COUNT 3.55 M/uL (4.00-6.00); RED CELL DISTRIBUTION WIDTH 21.1 % (11.5-14.5)
[2023-10-02 07:44] LABS: ALBUMIN 1.2 gm/dL (3.4-5.0); BILIRUBIN TOTAL 0.45 mg/dL (0.3-1.2); BILIRUBIN,CONJUGATED 0.15 mg/dL (0.0-0.2); BILIRUBIN,UNCONJUGATED 0.3 mg/dL (0.0-0.6); CALCIUM 7.4 mg/dL (8.5-10.1); CHOL HDL RATIO 4.8 (0-5.0); CREATININE SERUM 1.15 mg/dL (0.55-1.02); GFR 45.88; POTASSIUM 4.85 mEq/L (3.5-5.1); TOTAL PROTEIN 4.2 gm/dL (6.4-8.2)
[2023-10-02 08:10] LABS: INR 1.59; PARTIAL THROMBOPLASTIN TIME 35.9 SECONDS (22.0-34.0)
[2023-10-02 08:24] LABS: PROTHROMBIN TIME 16.1 SECONDS (9.0-11.5)
[2023-10-02] MEDS ORDERED: LACTOBACILLUS ACIDOPHILUS 1 CAP CAP PO SCH (09:00)
[2023-10-02 09:40] LABS: UREA CLEARANCE 14.5 ML/MIN
[2023-10-02] MEDS ORDERED: ALBUMIN HUMAN-25 0.25GM/ML (50ML) VIAL IV SCH (11:16)
[2023-10-02] MEDS ORDERED: FUROsemide 20 MG/2 ML VIAL IV SCH (11:16)
[2023-10-02] MEDS ORDERED: SIMETHICONE 125 MG CAPSULE PO PRN (12:30)
[2023-10-02] MEDS ORDERED: AMPICILLIN SODIUM/SULBACTAM NA 3,000 MG VIAL IV SCH (14:00)
[2023-10-02] MEDS ORDERED: CIPROFLOXACIN IN 5 % DEXTROSE 400 MG/200 ML PIGGYBAG IV SCH (17:00)
[2023-10-03] MEDS ORDERED: ENOXAPARIN SODIUM 40 MG/0.4 ML SYRINGE SUBCUTANEO SCH (09:00)
[2023-10-03] MEDS ORDERED: LIDOCAINE 5% 1 PATCH ADH. TOP SCH (09:15)
[2023-10-03] MEDS ORDERED: AMINO ACIDS/PROTEIN HYDROLYS 30 ML BLIST.PACK PO SCH (10:27)
[2023-10-04] MEDS ORDERED: FUROsemide 20 MG/2 ML VIAL IV SCH (09:00)
[2023-10-04 14:30] LABS: ABG PH 7.496 (7.35-7.45); ABG pCO2 32.5 mmHg (35-45)
[2023-10-04 14:31] LABS: ABG PO2 74.3 mmHg (80-100); BICARBONATE 24.6 mmol/l (23-25); SaO2 96.1 %; Tco2 25.6 mmol/l; allen test SATISFACTORY; o2 32 %; puncture site RADIAL RIGHT
[2023-10-04 15:16] LABS: ALBUMIN 1.8 gm/dL (3.4-5.0); BILIRUBIN TOTAL 0.63 mg/dL (0.3-1.2); CALCIUM 7.6 mg/dL (8.5-10.1); CREATININE SERUM 1.18 mg/dL (0.55-1.02); GFR 44.53; GLOBULINA 3.7 G/DL (2.4-3.5); HEMATOCRIT 32.3 % (36.0-45.00); HEMOGLOBIN 10.5 g/dL (12.0-15.00); MAGNESIUM 1.8 mg/dL (1.8-2.4); MEAN CELL VOLUME 86.2 fL (80.00-100.00); MEAN CORPUSCULAR HEMOGLOBIN 28.1 pg (27.00-32.0); MEAN CORPUSCULAR HGB CONC 32.7 g/dl (32.0-36.0); PHOSPHOROUS 3.7 mg/dL (2.5-4.9); PLATELET COUNT 245 K/uL (150-450); POTASSIUM 3.23 mEq/L (3.5-5.1); RED BLOOD COUNT 3.74 M/uL (4.00-6.00); RED CELL DISTRIBUTION WIDTH 22.4 % (11.5-14.5); TOTAL PROTEIN 5.5 gm/dL (6.4-8.2)
[2023-10-04 15:17] LABS: C-REACTIVE PROTEIN 8.76 MG/DL (0.00-0.29)
[2023-10-04] MEDS ORDERED: POTASSIUM CHLORIDE 20MEQ/100ML H2O PB IV ONE (17:15)
[2023-10-04] MEDS ORDERED: SPIRONOLACTONE 25 MG TABLET PO SCH (17:38)
[2023-10-05 07:05] LABS: PH,URINE 7.5 (5.0-8.0); URINE APPEARANCE Clear; URINE BILIRRUBIN Negative (NEGATIVE); URINE BLOOD Moderate; URINE COLOR Yellow; URINE GLUCOSE Negative (NEGATIVE); URINE LEUKOCYTE Negative; URINE NITRATE Negative; URINE PROTEIN Trace (NEGATIVE); URINE UROBILINOGEN 0.2 E.U./dl
[2023-10-05 07:17] LABS: HEMATOCRIT 33.9 % (36.0-45.00); HEMOGLOBIN 11.3 g/dL (12.0-15.00); MEAN CELL VOLUME 85.9 fL (80.00-100.00); MEAN CORPUSCULAR HEMOGLOBIN 28.5 pg (27.00-32.0); MEAN CORPUSCULAR HGB CONC 33.2 g/dl (32.0-36.0); PLATELET COUNT 260 K/uL (150-450); RED BLOOD COUNT 3.95 M/uL (4.00-6.00); RED CELL DISTRIBUTION WIDTH 21.8 % (11.5-14.5)
[2023-10-05 07:18] LABS: URINE BACTERIA 22.6 uL (0.0-1933); URINE RBC 160.8 uL (0.0-20.8); URINE WBC 9.5 uL (0.0-23.2)
[2023-10-05 07:50] LABS: CALCIUM 7.9 mg/dL (8.5-10.1); CREATININE SERUM 1.17 mg/dL (0.55-1.02); GFR 44.97; MAGNESIUM 1.7 mg/dL (1.8-2.4); PHOSPHOROUS 3.7 mg/dL (2.5-4.9); POTASSIUM 3.56 mEq/L (3.5-5.1)
[2023-10-05] MEDS ORDERED: TAMSULOSIN HCL 0.4 MG CAP PO ONE (12:15)
[2023-10-07 07:58] LABS: HEMATOCRIT 29.3 % (36.0-45.00); HEMOGLOBIN 10.1 g/dL (12.0-15.00); MEAN CELL VOLUME 85.4 fL (80.00-100.00); MEAN CORPUSCULAR HEMOGLOBIN 29.5 pg (27.00-32.0); MEAN CORPUSCULAR HGB CONC 34.5 g/dl (32.0-36.0); PLATELET COUNT 266 K/uL (150-450); RED BLOOD COUNT 3.43 M/uL (4.00-6.00); RED CELL DISTRIBUTION WIDTH 22.3 % (11.5-14.5)
[2023-10-07 08:03] LABS: CALCIUM 7.4 mg/dL (8.5-10.1); CREATININE SERUM 0.95 mg/dL (0.55-1.02); GFR 57.19; PHOSPHOROUS 2.8 mg/dL (2.5-4.9)
[2023-10-07 09:14] LABS: MAGNESIUM 1.4 mg/dL (1.8-2.4); POTASSIUM 2.59 mEq/L (3.5-5.1)
[2023-10-07] MEDS ORDERED: MAGNESIUM SULFATE IN WATER 4 GM/100 ML PIGGYBACK IV ONE (14:15)
[2023-10-07] MEDS ORDERED: POTASSIUM CHLORIDE IN WATER 100 ML IV ONE (14:15)
[2023-10-07] MEDS ORDERED: CALCIUM CARBONATE/VITAMIN D3 1 TAB TABLET PO SCH (17:00)
[2023-10-09 05:18] LABS: HEMATOCRIT 27.6 % (36.0-45.00); HEMOGLOBIN 9.4 g/dL (12.0-15.00); MEAN CELL VOLUME 86.3 fL (80.00-100.00); MEAN CORPUSCULAR HEMOGLOBIN 29.6 pg (27.00-32.0); MEAN CORPUSCULAR HGB CONC 34.2 g/dl (32.0-36.0); PLATELET COUNT 322 K/uL (150-450); RED BLOOD COUNT 3.19 M/uL (4.00-6.00); RED CELL DISTRIBUTION WIDTH 21.7 % (11.5-14.5)
[2023-10-09 05:20] LABS: ERYTHROCYTE SEDIMENTATION RATE 43 mm/hr
[2023-10-09 06:00] LABS: ALBUMIN 1.6 gm/dL (3.4-5.0); BILIRUBIN TOTAL 0.46 mg/dL (0.3-1.2); CALCIUM 7.3 mg/dL (8.5-10.1); CREATININE SERUM 0.7 mg/dL (0.55-1.02); GFR 81.36; GLOBULINA 3.2 G/DL (2.4-3.5); TOTAL PROTEIN 4.8 gm/dL (6.4-8.2)
[2023-10-09 06:10] LABS: PHOSPHOROUS 2.8 mg/dL (2.5-4.9)
[2023-10-09 06:31] LABS: C-REACTIVE PROTEIN 10.7 MG/DL (0.00-0.29)
[2023-10-09 06:32] LABS: POTASSIUM 2.44 mEq/L (3.5-5.1)
[2023-10-09] MEDS ORDERED: POTASSIUM CHLORIDE IN WATER 40 MEQ/100 ML PIGGYBAG IV SCH (09:00)
[2023-10-09] MEDS ORDERED: DIATRIZOATE MEGLUMINE, SODIUM 30 ML BOTTLE PO ONE (09:00)
[2023-10-09] MEDS ORDERED: CHLORHEXIDINE GLUCONATE 120 ML BOTTLE TOP SCH (09:00)
[2023-10-09] MEDS ORDERED: METRONIDAZOLE/SODIUM CHLORIDE 100 ML IV SCH (17:00)
[2023-10-09] MEDS ORDERED: SPIRONOLACTONE 25 MG TABLET PO SCH (20:41)
[2023-10-10 06:55] LABS: HEMATOCRIT 27.8 % (36.0-45.00); HEMOGLOBIN 9.5 g/dL (12.0-15.00); MEAN CELL VOLUME 87.4 fL (80.00-100.00); MEAN CORPUSCULAR HGB CONC 34.4 g/dl (32.0-36.0); PLATELET COUNT 359 K/uL (150-450); RED BLOOD COUNT 3.18 M/uL (4.00-6.00); RED CELL DISTRIBUTION WIDTH 21.9 % (11.5-14.5)
[2023-10-10 07:19] LABS: ALBUMIN 1.6 gm/dL (3.4-5.0); CALCIUM 7.4 mg/dL (8.5-10.1); CREATININE SERUM 0.7 mg/dL (0.55-1.02); GFR 81.36; PHOSPHOROUS 2.2 mg/dL (2.5-4.9); POTASSIUM 3.44 mEq/L (3.5-5.1)
[2023-10-10 07:20] LABS: MAGNESIUM 1.4 mg/dL (1.8-2.4)
[2023-10-10] MEDS ORDERED: POTASSIUM CHLORIDE 20MEQ/100ML H2O PB IV ONE (07:30)
[2023-10-10] MEDS ORDERED: MAGNESIUM SULFATE IN WATER 50 ML IV ONE (07:30)
[2023-10-10] MEDS ORDERED: Cyanocobalamin/Mecobalamin 1 TAB.SL SL SCH (09:00)
[2023-10-10] MEDS ORDERED: POTASSIUM PHOS,M-BASIC-D-BASIC 3 MM/ML VIAL IV ONE (09:00)
[2023-10-10] MEDS ORDERED: SOD FERRIC GLUC COMPLX/SUCROSE 62.5 MG in 0.9 % SODIUM CHLORIDE 50 ML IV SCH (09:00)
[2023-10-10] MEDS ORDERED: FLUCONAZOLE IN NACL,ISO-OSM 400 MG/200 ML PIGGYBAG IV ONE (12:45)
[2023-10-10] MEDS ORDERED: SULFAMETHOXAZOLE/TRIMETHOPRIM DS 1 TAB PO SCH (21:00)
[2023-10-11] MEDS ORDERED: FUROsemide 20 MG/2 ML VIAL IV SCH (10:22)
[2023-10-11] MEDS ORDERED: FLUCONAZOLE IN NACL,ISO-OSM 100 ML IV SCH (12:00)
[2023-10-11] MEDS ORDERED: fentaNYL CITRATE 50 MCG/ML AMPUL IV PUSH ONE (18:30)
[2023-10-11] MEDS ORDERED: MIDAZOLAM HCL 2 MG/2 ML VIAL IV PUSH ONE (18:30)
[2023-10-12 05:35] LABS: HEMATOCRIT 26.5 % (36.0-45.00); HEMOGLOBIN 9.1 g/dL (12.0-15.00); MEAN CELL VOLUME 86.5 fL (80.00-100.00); MEAN CORPUSCULAR HEMOGLOBIN 29.8 pg (27.00-32.0); MEAN CORPUSCULAR HGB CONC 34.5 g/dl (32.0-36.0); PLATELET COUNT 375 K/uL (150-450); RED BLOOD COUNT 3.06 M/uL (4.00-6.00); RED CELL DISTRIBUTION WIDTH 21.8 % (11.5-14.5)
[2023-10-12 05:46] LABS: ALBUMIN 1.8 gm/dL (3.4-5.0); BILIRUBIN TOTAL 0.29 mg/dL (0.3-1.2); CALCIUM 7.4 mg/dL (8.5-10.1); CREATININE SERUM 0.76 mg/dL (0.55-1.02); GFR 73.99; GLOBULINA 3.5 G/DL (2.4-3.5); PHOSPHOROUS 2.8 mg/dL (2.5-4.9); POTASSIUM 3.13 mEq/L (3.5-5.1); TOTAL PROTEIN 5.3 gm/dL (6.4-8.2)
[2023-10-12 06:00] LABS: C-REACTIVE PROTEIN 7.49 MG/DL (0.00-0.29)
[2023-10-12 06:01] LABS: MAGNESIUM 1.3 mg/dL (1.8-2.4)
[2023-10-12] MEDS ORDERED: MAGNESIUM SULFATE IN WATER 50 ML IV ONE (06:45)
[2023-10-12] MEDS ORDERED: POTASSIUM CHLORIDE 20MEQ/100ML H2O PB IV ONE (06:45)
[2023-10-12] MEDS ORDERED: MAGNESIUM CHLORIDE 70 MG TABLET.DR PO SCH (09:00)
[2023-10-14 10:09] LABS: CALCIUM 7.7 mg/dL (8.5-10.1); CREATININE SERUM 0.71 mg/dL (0.55-1.02); GFR 80.04; POTASSIUM 3.87 mEq/L (3.5-5.1)
[2023-10-15 07:12] LABS: ALBUMIN 1.9 gm/dL (3.4-5.0); BILIRUBIN TOTAL 0.27 mg/dL (0.3-1.2); CALCIUM 7.5 mg/dL (8.5-10.1); CREATININE SERUM 0.75 mg/dL (0.55-1.02); GFR 75.13; GLOBULINA 3.4 G/DL (2.4-3.5); PHOSPHOROUS 2.2 mg/dL (2.5-4.9); POTASSIUM 3.04 mEq/L (3.5-5.1); TOTAL PROTEIN 5.3 gm/dL (6.4-8.2)
[2023-10-15 07:52] LABS: HEMATOCRIT 25.6 % (36.0-45.00); MEAN CELL VOLUME 85.7 fL (80.00-100.00); MEAN CORPUSCULAR HGB CONC 34.1 g/dl (32.0-36.0); PLATELET COUNT 307 K/uL (150-450); RED BLOOD COUNT 2.99 M/uL (4.00-6.00); RED CELL DISTRIBUTION WIDTH 22.4 % (11.5-14.5)
[2023-10-15 07:53] LABS: HEMOGLOBIN 8.7 g/dL (12.0-15.00)
[2023-10-15 08:33] LABS: C-REACTIVE PROTEIN 4.64 MG/DL (0.00-0.29)
[2023-10-15 08:34] LABS: MAGNESIUM 1.2 mg/dL (1.8-2.4)
[2023-10-15] MEDS ORDERED: MAGNESIUM SULFATE IN WATER 4 GM/100 ML PIGGYBACK IV ONE (08:45)
[2023-10-15] MEDS ORDERED: SUCRALFATE 1 G TABLET PO SCH (13:00)
[2023-10-15] MEDS ORDERED: POTASSIUM CHLORIDE IN WATER 100 ML IV ONE (16:30)
[2023-10-16 07:10] LABS: HEMATOCRIT 26.1 % (36.0-45.00); MEAN CELL VOLUME 85.9 fL (80.00-100.00); MEAN CORPUSCULAR HGB CONC 34.3 g/dl (32.0-36.0); PLATELET COUNT 298 K/uL (150-450); RED BLOOD COUNT 3.03 M/uL (4.00-6.00); RED CELL DISTRIBUTION WIDTH 22.7 % (11.5-14.5)
[2023-10-16 07:12] LABS: MEAN CORPUSCULAR HEMOGLOBIN 29.3 pg (27.00-32.0)
[2023-10-16 07:13] LABS: HEMOGLOBIN 8.9 g/dL (12.0-15.00)
[2023-10-16 07:32] LABS: CALCIUM 7.6 mg/dL (8.5-10.1); CREATININE SERUM 0.65 mg/dL (0.55-1.02); GFR 88.62; POTASSIUM 3.43 mEq/L (3.5-5.1)
[2023-10-16] MEDS ORDERED: POTASSIUM CHLORIDE 20MEQ/100ML H2O PB IV ONE (08:00)
[2023-10-16 17:29] LABS: URINE APPEARANCE Clear; URINE BILIRRUBIN Negative (NEGATIVE); URINE BLOOD Negative; URINE COLOR Yellow; URINE GLUCOSE Negative (NEGATIVE); URINE LEUKOCYTE Trace; URINE NITRATE Negative; URINE PROTEIN Negative (NEGATIVE); URINE UROBILINOGEN 0.2 E.U./dl
[2023-10-16 17:33] LABS: URINE BACTERIA 26.4 uL (0.0-1933); URINE EPITHELIAL CELLS 16.3 uL (0.0-38.8); URINE RBC 9.3 uL (0.0-20.8); URINE WBC 18.5 uL (0.0-23.2)
[2023-10-17 07:34] LABS: HEMATOCRIT 24.3 % (36.0-45.00); MEAN CELL VOLUME 85.8 fL (80.00-100.00); MEAN CORPUSCULAR HGB CONC 33.5 g/dl (32.0-36.0); PLATELET COUNT 253 K/uL (150-450); RED BLOOD COUNT 2.83 M/uL (4.00-6.00); RED CELL DISTRIBUTION WIDTH 22.6 % (11.5-14.5)
[2023-10-17 08:02] LABS: ALBUMIN 1.9 gm/dL (3.4-5.0); BILIRUBIN TOTAL 0.26 mg/dL (0.3-1.2); CALCIUM 7.4 mg/dL (8.5-10.1); CREATININE SERUM 0.66 mg/dL (0.55-1.02); GFR 87.07; GLOBULINA 3.3 G/DL (2.4-3.5); MAGNESIUM 1.6 mg/dL (1.8-2.4); POTASSIUM 3.51 mEq/L (3.5-5.1); TOTAL PROTEIN 5.2 gm/dL (6.4-8.2)
[2023-10-17 08:05] LABS: C-REACTIVE PROTEIN 4.51 MG/DL (0.00-0.29); PHOSPHOROUS 1.8 mg/dL (2.5-4.9)
[2023-10-17 08:41] LABS: HEMOGLOBIN 8.1 g/dL (12.0-15.00); MEAN CORPUSCULAR HEMOGLOBIN 28.6 pg (27.00-32.0)
[2023-10-17] MEDS ORDERED: FUROsemide 20 MG/2 ML VIAL IV SCH (11:00)
[2023-10-17] MEDS ORDERED: MAGNESIUM SULFATE 2,000 MG in 0.9 % SODIUM CHLORIDE 100 ML IV ONE (11:15)
[2023-10-17] MEDS ORDERED: POTASSIUM PHOS,M-BASIC-D-BASIC 3 MM/ML VIAL IV ONE (12:00)
[2023-10-17] MEDS ORDERED: MEROPENEM 500 MG/VIAL VIAL IV SCH (21:00)
[2023-10-18] MEDS ORDERED: PANTOPRAZOLE SODIUM 40 MG TABLET.DR PO SCH (09:19)
[2023-10-18 12:44] LABS: PLATELET ESTIMATE INCREASED (NORMAL)
[2023-10-18 13:20] LABS: MEAN CELL VOLUME 85.1 fL (80.00-100.00); MEAN CORPUSCULAR HGB CONC 34.1 g/dl (32.0-36.0); PLATELET COUNT 263 K/uL (150-450); RED BLOOD COUNT 4.47 M/uL (4.00-6.00); RED CELL DISTRIBUTION WIDTH 20.3 % (11.5-14.5)
[2023-10-18] MEDS ORDERED: POLYMYXIN B SULFATE 500,000 U VIAL IV SCH (19:08)
[2023-10-19 06:38] LABS: HEMATOCRIT 37.1 % (36.0-45.00); HEMOGLOBIN 12.6 g/dL (12.0-15.00); MEAN CELL VOLUME 84.7 fL (80.00-100.00); MEAN CORPUSCULAR HEMOGLOBIN 28.7 pg (27.00-32.0); MEAN CORPUSCULAR HGB CONC 33.9 g/dl (32.0-36.0); PLATELET COUNT 239 K/uL (150-450); RED BLOOD COUNT 4.38 M/uL (4.00-6.00); RED CELL DISTRIBUTION WIDTH 20.7 % (11.5-14.5)
[2023-10-19 07:07] LABS: CALCIUM 8.3 mg/dL (8.5-10.1); CREATININE SERUM 0.72 mg/dL (0.55-1.02); GFR 78.75; POTASSIUM 3.46 mEq/L (3.5-5.1)
[2023-10-19 08:15] LABS: PHOSPHOROUS 1.8 mg/dL (2.5-4.9)
[2023-10-19 08:16] LABS: MAGNESIUM 1.3 mg/dL (1.8-2.4)
[2023-10-19] MEDS ORDERED: MAGNESIUM CHLORIDE 70 MG TABLET.DR PO SCH (09:41)
[2023-10-19] MEDS ORDERED: MAGNESIUM SULFATE IN WATER 50 ML IV ONE (09:45)
[2023-10-19] MEDS ORDERED: POTASSIUM PHOS,M-BASIC-D-BASIC 3 MM/ML VIAL IV ONE (09:45)
[2023-10-19] MEDS ORDERED: POTASSIUM CHLORIDE 20MEQ/100ML H2O PB IV ONE (09:45)
[2023-10-19] MEDS ORDERED: POLYMYXIN B SULFATE 1,667 U/ML ML IV SCH (17:00)
[2023-10-20 07:03] LABS: ALBUMIN 2.3 gm/dL (3.4-5.0); BILIRUBIN TOTAL 0.49 mg/dL (0.3-1.2); CALCIUM 8.5 mg/dL (8.5-10.1); CREATININE SERUM 0.55 mg/dL (0.55-1.02); GFR 107.46; GLOBULINA 4.1 G/DL (2.4-3.5); MAGNESIUM 1.8 mg/dL (1.8-2.4); PHOSPHOROUS 2.3 mg/dL (2.5-4.9); POTASSIUM 4.11 mEq/L (3.5-5.1); TOTAL PROTEIN 6.4 gm/dL (6.4-8.2)
[2023-10-20] MEDS ORDERED: POTASSIUM PHOS,M-BASIC-D-BASIC 3 MM/ML VIAL IV ONE (12:00)
[2023-10-22 08:43] LABS: HEMATOCRIT 33.6 % (36.0-45.00); HEMOGLOBIN 11.2 g/dL (12.0-15.00); MEAN CELL VOLUME 85.6 fL (80.00-100.00); MEAN CORPUSCULAR HEMOGLOBIN 28.7 pg (27.00-32.0); MEAN CORPUSCULAR HGB CONC 33.5 g/dl (32.0-36.0); PLATELET COUNT 221 K/uL (150-450); RED BLOOD COUNT 3.92 M/uL (4.00-6.00); RED CELL DISTRIBUTION WIDTH 20.5 % (11.5-14.5)
[2023-10-22 08:44] LABS: CALCIUM 8.7 mg/dL (8.5-10.1); CREATININE SERUM 0.41 mg/dL (0.55-1.02); GFR 150.83; POTASSIUM 3.45 mEq/L (3.5-5.1)
[2023-10-22 08:46] LABS: MAGNESIUM 1.4 mg/dL (1.8-2.4)
[2023-10-22] MEDS ORDERED: POTASSIUM CHLORIDE 20MEQ/100ML H2O PB IV ONE (12:47)
[2023-10-22] MEDS ORDERED: MAGNESIUM SULFATE IN WATER 50 ML IV ONE (12:47)
[2023-10-22] MEDS ORDERED: MAGNESIUM CHLORIDE 70 MG TABLET.DR PO SCH (17:00)
[2023-10-23] MEDS ORDERED: DIATRIZOATE MEGLUMINE, SODIUM 30 ML BOTTLE PO STA (08:31)
[2023-10-23] MEDS ORDERED: VANCOMYCIN HCL 1,000 MG VIAL IV ONE (15:45)
[2023-10-24 06:25] LABS: HEMATOCRIT 32.4 % (36.0-45.00); MEAN CELL VOLUME 85.3 fL (80.00-100.00); MEAN CORPUSCULAR HEMOGLOBIN 28.9 pg (27.00-32.0); MEAN CORPUSCULAR HGB CONC 33.9 g/dl (32.0-36.0); PLATELET COUNT 242 K/uL (150-450); RED CELL DISTRIBUTION WIDTH 19.6 % (11.5-14.5)
[2023-10-24 07:28] LABS: CALCIUM 8.3 mg/dL (8.5-10.1); CREATININE SERUM 0.41 mg/dL (0.55-1.02); GFR 150.83; MAGNESIUM 1.5 mg/dL (1.8-2.4); PHOSPHOROUS 3.6 mg/dL (2.5-4.9); POTASSIUM 3.38 mEq/L (3.5-5.1)
[2023-10-24 07:36] LABS: C-REACTIVE PROTEIN 4.38 MG/DL (0.00-0.29)
[2023-10-24] MEDS ORDERED: POTASSIUM CHLORIDE 20MEQ/100ML H2O PB IV ONE (08:15)
[2023-10-24] MEDS ORDERED: MAGNESIUM SULFATE IN WATER 50 ML IV ONE (08:15)
[2023-10-24] MEDS ORDERED: AMPICILLIN SODIUM/SULBACTAM NA 3,000 MG VIAL IV SCH (14:45)
[2023-10-25] MEDS ORDERED: AMPICILLIN TRI500 MG PO (10:26)
[2023-10-25] MEDS ORDERED: PRILOSEC OTC20 MG PO (10:26)
[2023-10-25] MEDS ORDERED: INTESTINEX680 M1 PO (10:26)
== END 2023-10-25 12:14 | disposition home or self-care (01) | DRG 329 ==
LOC: ER 09:14 → SEC-K 19:59 → SURG 19:59 → ICU 09-26 21:00 → SURH 10-03 13:28
PROVIDERS: General Practice; Internal Medicine; Internal Medicine Endocrinology, Diabetes & Metabolism; Internal Medicine Geriatric Medicine; Internal Medicine Infectious Disease; Internal Medicine Nephrology; Surgery; ADMIT Surgery; ATTEND Surgery
PROC: BW21YZZ Computerized Tomography (CT Scan) of Abdomen and Pelvis using Other Contrast (ICD-10-PCS; 2023-09-14)
PROC: BB24YZZ Computerized Tomography (CT Scan) of Bilateral Lungs using Other Contrast (ICD-10-PCS; 2023-09-14)
PROC: 07BC4ZZ Excision of Pelvis Lymphatic, Percutaneous Endoscopic Approach (ICD-10-PCS; 2023-09-15)
PROC: 0DBU4ZZ Excision of Omentum, Percutaneous Endoscopic Approach (ICD-10-PCS; 2023-09-15)
PROC: 0DTF4ZZ Resection of Right Large Intestine, Percutaneous Endoscopic Approach (ICD-10-PCS; principal; 2023-09-15 16:00)
PROC: BB24YZZ Computerized Tomography (CT Scan) of Bilateral Lungs using Other Contrast (ICD-10-PCS; 2023-09-19)
PROC: B246ZZZ Ultrasonography of Right and Left Heart (ICD-10-PCS; 2023-09-22)
PROC: 3E0F7GC Introduction of Other Therapeutic Substance into Respiratory Tract, Via Natural or Artificial Opening (ICD-10-PCS; 2023-09-22)
PROC: BW21YZZ Computerized Tomography (CT Scan) of Abdomen and Pelvis using Other Contrast (ICD-10-PCS; 2023-09-23)
PROC: BW21YZZ Computerized Tomography (CT Scan) of Abdomen and Pelvis using Other Contrast (ICD-10-PCS; 2023-09-23)
PROC: 02HV33Z Insertion of Infusion Device into Superior Vena Cava, Percutaneous Approach (ICD-10-PCS; 2023-09-24)
PROC: 3E0436Z Introduction of Nutritional Substance into Central Vein, Percutaneous Approach (ICD-10-PCS; 2023-09-24)
PROC: 0W9F3ZZ Drainage of Abdominal Wall, Percutaneous Approach (ICD-10-PCS; 2023-09-25)
PROC: 0D9P3ZZ Drainage of Rectum, Percutaneous Approach (ICD-10-PCS; 2023-09-25)
PROC: 0DJW0ZZ Inspection of Peritoneum, Open Approach (ICD-10-PCS; 2023-09-26)
PROC: 0W9G0ZZ Drainage of Peritoneal Cavity, Open Approach (ICD-10-PCS; 2023-09-26)
PROC: 0DB80ZZ Excision of Small Intestine, Open Approach (ICD-10-PCS; 2023-09-26)
PROC: 0DBU0ZZ Excision of Omentum, Open Approach (ICD-10-PCS; 2023-09-26)
PROC: 3E1M38Z Irrigation of Peritoneal Cavity using Irrigating Substance, Percutaneous Approach (ICD-10-PCS; 2023-09-26)
PROC: 0BH17EZ Insertion of Endotracheal Airway into Trachea, Via Natural or Artificial Opening (ICD-10-PCS; 2023-09-26)
PROC: 5A1945Z Respiratory Ventilation, 24-96 Consecutive Hours (ICD-10-PCS; 2023-09-26)
PROC: 0D9670Z Drainage of Stomach with Drainage Device, Via Natural or Artificial Opening (ICD-10-PCS; 2023-09-26)
PROC: 30233N1 Transfusion of Nonautologous Red Blood Cells into Peripheral Vein, Percutaneous Approach (ICD-10-PCS; 2023-09-27)
PROC: 4A12X4Z Monitoring of Cardiac Electrical Activity, External Approach (ICD-10-PCS; 2023-09-28)
PROC: BW21YZZ Computerized Tomography (CT Scan) of Abdomen and Pelvis using Other Contrast (ICD-10-PCS; 2023-10-09)
PROC: 0W9F30Z Drainage of Abdominal Wall with Drainage Device, Percutaneous Approach (ICD-10-PCS; 2023-10-11)
PROC: BW21YZZ Computerized Tomography (CT Scan) of Abdomen and Pelvis using Other Contrast (ICD-10-PCS; 2023-10-23)
DX: C18.2 Malignant neoplasm of ascending colon (principal); J95.821 Acute postprocedural respiratory failure; K63.1 Perforation of intestine (nontraumatic); K65.1 Peritoneal abscess; T81.12XA Postprocedural septic shock, initial encounter; K72.00 Acute and subacute hepatic failure without coma; K65.8 Other peritonitis; T81.44XA Sepsis following a procedure, initial encounter; L02.211 Cutaneous abscess of abdominal wall; T81.43XA Infection following a procedure, organ and space surgical site, initial encounter; K61.1 Rectal abscess; B37.49 Other urogenital candidiasis; E89.89 Other postprocedural endocrine and metabolic complications and disorders; K91.89 Other postprocedural complications and disorders of digestive system; K56.690 Other partial intestinal obstruction; J90 Pleural effusion, not elsewhere classified; T81.31XA Disruption of external operation (surgical) wound, not elsewhere classified, initial encounter; J98.11 Atelectasis; K62.5 Hemorrhage of anus and rectum; N99.0 Postprocedural (acute) (chronic) kidney failure; E87.6 Hypokalemia; D64.89 Other specified anemias; K59.00 Constipation, unspecified; R59.0 Localized enlarged lymph nodes; B96.89 Other specified bacterial agents as the cause of diseases classified elsewhere; R73.9 Hyperglycemia, unspecified; Z74.01 Bed confinement status; Y83.8 Other surgical procedures as the cause of abnormal reaction of the patient, or of later complication, without mention of misadventure at the time of the procedure; Y92.238 Other place in hospital as the place of occurrence of the external cause

== ENCOUNTER 2024-03-01 05:44 | Day surgery (SDC) | payer OTHER ==
[~2024-03-01] VITALS: Ht 152.4 cm; Wt 68.0 kg
[~2024-03-01 05:44] MED LIST: AMPICILLIN TRI500 MG PO; INTESTINEX680 M1 PO; PRILOSEC OTC20 MG PO; TYLENOL ARTHRI650 MG PO
[2024-03-01] MEDS ORDERED: CEFAZOLIN SODIUM 1,000 MG VIAL ONE (08:14)
[2024-03-01] MEDS ORDERED: TRAM1TAB98 PO (08:35)
[2024-03-01] MEDS ORDERED: BUPIVACAINE HCL/Mpf 0.5% 10ML VIAL ONE (08:47)
[2024-03-01] MEDS ORDERED: HEPARIN SODIUM,PORCINE 500 UNITS/5 ML VIAL IV ONE ×2 (08:47→09:26)
[2024-03-01] MEDS ORDERED: LIDOCAINE HCL 1%/EPINEPHRINE 20ML VIAL IJ ONE ×2 (08:48→09:27)
== END 2024-03-01 11:50 | disposition home or self-care (01) ==
LOC: CIR.AMB 05:44
PROVIDERS: ATTEND Surgery
DX: C18.2 Malignant neoplasm of ascending colon (principal); K62.5 Hemorrhage of anus and rectum; D50.9 Iron deficiency anemia, unspecified; R59.0 Localized enlarged lymph nodes
CPT/HCPCS: 36561; C1751